=== PATIENT | male | born 1965 | race Caucasian/White ===

== ENCOUNTER 2016-12-08 15:35 | Emergency (ER) | payer MEDICAID ==
[~2016-12-08] VITALS: Ht 193 cm; Wt 107.5 kg
--- NOTE | 2016-12-08 16:00 | NUR ---
PT BIB SELF C/O LEANDRA NECK MASSES "SWOLLEN LYMPH NODES" X 6+MONTHS. DENIES PAIN. NO ORAL OR PHARYNGEAL SWELLING NOTED. NO DIFFICULTY SWALLOWING OR SPEAKING. SWELLING NONTENDER TO PALP. RESP EVEN UNLABORED. IN ER BED 09.
[2016-12-08] MEDS ORDERED: IV NS 0.9% 1,000 ML ONE (16:27)
[2016-12-08] MEDS ORDERED: IV SET PRIMARY 1 EA INFUS.SET MC ONE (16:27)
[2016-12-08] MEDS: IV NS 0.9% 1,000 ML BAG IV ONE (16:34)
[2016-12-08 16:40] LABS: BASOPHILS # (AUTO) 0.1 /CMM (0.0-0.2); BASOPHILS % (AUTO) 0.9 % (0.0-2.0); EOSINOPHILS # (AUTO) 0.2 /CMM (0.0-0.7); EOSINOPHILS % (AUTO) 1.7 % (0.0-6.0); HEMATOCRIT 45 % (39-51); HEMOGLOBIN 14.9 g/dL (13.5-17.5); LYMPHOCYTES # (AUTO) 4.8 /CMM (0.8-4.8); LYMPHOCYTES % (AUTO) 38.8 % (20.0-44.0); MEAN CORPUSCULAR HEMOGLOBIN 29 PG (26.0-33.0); MEAN CORPUSCULAR HGB CONC 33 g/dl (31.0-36.0); MEAN CORPUSCULAR VOLUME 89 fL (80-96); MONOCYTES # (AUTO) 1.1 /CMM (0.1-1.30); MONOCYTES % (AUTO) 8.6 % (2.0-12.0); NEUTROPHILS # (AUTO) 6.3 /CMM (1.8-8.9); PLATELET COUNT (AUTO) 258 /CMM (150-450); RDW COEFFICIENT OF VARIATION 14.6 (11.5-15.0); RED BLOOD CELL COUNT(AUTO) 5.11 MIL/uL (4.5-6.0); WHITE BLOOD COUNT (AUTO) 12.5 K/uL (4.3-11.0)
[2016-12-08 16:50] LABS: CALCIUM, SERUM 9.2 mg/dL (8.5-10.1); CREATININE 1.4 mg/dL (0.6-1.3)
[2016-12-08 16:56] LABS: BILIRUBIN,DIRECT 0.1 mg/dL (0.0-0.2); BILIRUBIN,TOTAL 0.4 mg/dL (0.2-1.0); TOTAL PROTEIN, SERUM 7.7 g/dL (6.4-8.2)
[2016-12-08] MEDS ORDERED: IOHEXOL-300 100 ML VIAL IV ONE (17:01)
[2016-12-08] MEDS ORDERED: CT SWABBABLE VALVE TRANS SET 1 EA INFUS.SET MC ONE (17:01)
[2016-12-08] MEDS ORDERED: IV NS 0.9% 250 ML IV ONE (17:01)
--- NOTE | 2016-12-08 17:40 | NUR ---
PT RESTING QUIETLY IN BED, NAD NOTED.
--- NOTE | 2016-12-08 18:47 | NUR ---
Patient discharged to home in stable condition. Written and verbal after care instructions given. Patient verbalizes understanding of instruction. IV removed. Catheter intact and site benign. Pressure and 4x4 applied to site. No bleeding noted. AMBUALTORY WITH STEADY GAIT.
[2016-12-08 18:48] VITALS: BP 151/80
== END 2016-12-08 18:48 | disposition home or self-care (01) ==
LOC: ER 15:39
DX: R59.1 Generalized enlarged lymph nodes (principal)
CPT/HCPCS: 36415; 70491; 80048; 80076; 85025; 96360; 99285; A4606; J7030; J7050; Q9967; Z7610

== ENCOUNTER 2019-06-06 01:50 | Inpatient (IN) | payer OTHER ==
[~2019-06-06] VITALS: Ht 193 cm; Wt 103.9 kg
[2019-06-06 02:00] VITALS: BP 140/88
--- NOTE | 2019-06-06 02:00 | NUR ---
MS RN NOTE PT ARRIVED ON FLOOR VIA GURNEY ACCOMPANIED BY AMBULANCE PERSONNEL. RECEIVED PT IN STABLE CONDITION A/O X4. NO SIGNS OF SOB OR DISTRESS, NO C/O PAIN OR N/V. PT IS AMBULATORY WITH STEADY GAIT. IV IN L HAND #20 PATENT AND INTACT S/L. ALL CURRENT NEEDS ATTENDED TO. BED LOW, LOCKED, UPPER RAILS UP, AND CALL LIGHT WITHIN REACH. WILL CONT. TO MONITOR. ALL BELONGINGS ACCOUNTED AND SIGNED FOR, AND BODY ASSESSED PT DECLINES PHOTOS TO BE TAKEN. WILL CONT. TO MONITOR.
[2019-06-06] MEDS ORDERED: ONDANSETRON HCL/PF 4 MG/2 ML VIAL IVP PRN (02:30)
[2019-06-06] MEDS ORDERED: Z GUARD REMEDY 2 OZ OINT TP PRN (02:30)
[2019-06-06] MEDS ORDERED: ACETAMINOPHEN 325 MG TABLET PO PRN (02:30)
[2019-06-06] MEDS ORDERED: ZOLPIDEM TARTRATE 5 MG TABLET PO PRN (02:30)
[2019-06-06] MEDS: HYDROCODONE/APAP 10/325MG 1 EA TABLET PO PRN ×2 (05:22→10:01)
--- NOTE | 2019-06-06 05:26 | NUR ---
MS RN NOTE PRN NORCO 10-325 MG PO GIVEN FOR LLE PAIN 04/06. WILL CONT. TO MONITOR.
--- NOTE | 2019-06-06 06:18 | NUR ---
MS RN NOTE PT REMAINS IN STABLE CONDITION A/O X4, RESTING IN BED. NO SIGNS OF SOB OR DISTRESS, NO C/O PAIN OR N/V. IV IN L HAND #20 PATENT AND INTACT S/L. ALL CURRENT NEEDS ATTENDED TO. BED LOW, LOCKED, UPPER RAILS UP, AND CALL LIGHT WITHIN REACH. WILL CONT. TO MONITOR AND ENDORSE TO NEXT SHIFT FOR LA NENA.
[2019-06-06 06:33] LABS: BASOPHILS % (AUTO) 0.3 % (0.0-2.0); EOSINOPHILS % (AUTO) 2.8 % (0.0-6.0); HEMATOCRIT 36 % (39-51); HEMOGLOBIN 12.2 g/dL (13.5-17.5); LYMPHOCYTES # (AUTO) 3.8 /CMM (0.8-4.8); LYMPHOCYTES % (AUTO) 49.5 % (20.0-44.0); MEAN CORPUSCULAR HGB CONC 34 g/dl (31.0-36.0); MEAN CORPUSCULAR VOLUME 92 fL (80-96); MONOCYTES # (AUTO) 0.6 /CMM (0.1-1.30); MONOCYTES % (AUTO) 8.2 % (2.0-12.0); NEUTROPHILS % (AUTO) 39.2 % (43.0-81.0); PLATELET COUNT (AUTO) 94 /CMM (150-450); RED BLOOD CELL COUNT(AUTO) 3.93 MIL/uL (4.5-6.0); WHITE BLOOD COUNT (AUTO) 7.8 K/uL (4.3-11.0)
[2019-06-06 06:45] LABS: ALBUMIN 3.3 g/dL (3.4-5.0); BILIRUBIN,TOTAL 0.6 mg/dL (0.2-1.0); CALCIUM, SERUM 8.7 mg/dL (8.5-10.1); CREATININE 0.9 mg/dL (0.6-1.3); PHOSPHORUS 3.8 mg/dL (2.5-4.9); POTASSIUM 3.7 mmol/L (3.5-5.1); TOTAL PROTEIN, SERUM 6.2 g/dL (6.4-8.2)
[2019-06-06 07:19] LABS: URIC ACID 5.8 mg/dL (2.6-7.2)
--- NOTE | 2019-06-06 07:20 | NUR ---
MS RN NOTES RECEIVED PATIENT ALERT AND AWAKE, ORIENTED X4. DENIES ANY C/O PAIN NOR DISCOMFORT AT THIS TIME. HOB ELEVATED. LEFT HAND # 20 INTACT AND PATENT. BED IN LOWEST POSITION, LOCKED. BED ALARM ON. CALL LIGHT WITHIN REACH. OFFERED PATIENT FLU VACCINE BUT DECLINES AT THIS TIME. ABLE TO VERBALIZE NEEDS.
[2019-06-06 08:00] VITALS: BP 110/74
[2019-06-06] MEDS ORDERED: DIPH25CA51 PO (08:52)
[2019-06-06] MEDS ORDERED: IBUP-1955 PO (08:52)
[2019-06-06] MEDS: RIVAROXABAN 15 MG TABLET PO SCH ×2 (08:59→16:52)
[2019-06-06] MEDS ORDERED: FAMOTIDINE (20 MG) 20 MG TABLET PO SCH (09:00)
[2019-06-06] MEDS ORDERED: LACTOBACILLUS RHAMNOSUS GG 1 EACH CAP.SPRINK PO SCH (09:00)
--- NOTE | 2019-06-06 11:22 | NUR ---
Social service consult requested by Dr. Cobos for homelessness and pt. needing medical equipment assistance. Pt. is a 53 year old male with past medical history of lymphoma and who was seen in ED at [facility] for left leg pain and swelling for 3 days without any chest pain or shortness of breath or no recent trauma. Pt, was transferred to [facility] for insurance reasons as a direct admit. SW and manager of case Ewelina met with the pt. bedside. Pt. is alert and oriented x 4. Pt. had a t-shirt covering his head. Pt's thought process was tangential. Pt. states he has been living at [facility] located at [address] [place] [address]. Pt's ice cream vault worker is Brinda . Pt. has a psychiatric diagnosis of Schizophrenia. Pt. states, he is ashamed of having the diagnosis. SW offered pt. emotional support. Pt. takes Gabapentin. 500mg on and off. Pt. takes Benadryl at night to help him sleep. Pt. sees a psychiatrist at [facility]. Pt. denies any suicidal and homicidal ideations at this time. Pt. states it is common for him to have visual and auditory hallucinations. Pt. states he consistently hears voices but cannot elaborate what they are saying. Pt. states his visual hallucinations include "glass images." Pt. receives food stamps and GR in the amount of $224/ month. Pt. denies alcohol, drug and cigarette use. Pt. will return back to [facility] when discharged. Pt. will require TAP card to get to his location of choice. Pt. will be provided with a cane from case management. Homeless patient Waiver form to be signed by the pt. upon discharge. No other social service needs are requested at this time. SW is available, if needed.
[2019-06-06 16:00] VITALS: BP 113/67
--- NOTE | 2019-06-06 18:20 | NUR ---
MS RN CLOSING NOTES ALERT AND ORIENTED X4. NO SOB. DENIES ANY C/O PAIN NOR DISCOMFORT. DISCHARGE PACKET AND DISCHARGE INSTRUCTIONS GIVEN TO PATIENT WITH EDUCATION PROVIDED. PER PATIENT, HE HAS AN APPOINTMENT SCHEDULED WITH HIS PRIMARY MD AND ONCOLOGIST. IV ACCESS REMOVED WITH CATHETER TIP INTACT WITH GAUZE DRESSING IN PLACE. PRESCRIPTION GIVEN TO PATIENT. AMBULATORY WITH STEADY GAIT WITH THE USE OF CANE. ALL BELONGINGS ACCOUNTED FOR. LEFT IN STABLE CONDITION VIA PRIVATE CAR. NO S/S OF ACUTE DISTRESS.
== END 2019-06-06 18:05 | disposition home or self-care (01) | DRG 197 ==
LOC: MED 01:50
PROVIDERS: ADMIT Student in an Organized Health Care Education/Training Program; ATTEND Student in an Organized Health Care Education/Training Program
DX: I82.412 Acute embolism and thrombosis of left femoral vein (principal); C85.90 Non-Hodgkin lymphoma, unspecified, unspecified site; D68.59 Other primary thrombophilia; I82.432 Acute embolism and thrombosis of left popliteal vein; E44.1 Mild protein-calorie malnutrition; F20.9 Schizophrenia, unspecified; Z88.0 Allergy status to penicillin; D64.9 Anemia, unspecified; Z59.0 Homelessness; E88.09 Other disorders of plasma-protein metabolism, not elsewhere classified; Z68.27 Body mass index [BMI] 27.0-27.9, adult
CPT/HCPCS: 36415; 80053-TC; 83615-TC; 83735-TC; 84100-TC; 84550-TC; 85025-TC; 87081-TC; 93307-TC; 97116-TC; 97530-TC; G0378

== ENCOUNTER 2019-06-14 12:13 | Emergency (ER) | payer OTHER ==
[~2019-06-14] VITALS: Ht 193 cm; Wt 109.8 kg
[~2019-06-14 12:13] MED LIST: DIPH25CA51 PO; IBUP-1955 PO
[2019-06-14 12:17] VITALS: BP 113/88
[2019-06-14 12:52] LABS: BASOPHILS % (AUTO) 0.5 % (0.0-2.0); EOSINOPHILS % (AUTO) 3.2 % (0.0-6.0); HEMATOCRIT 35 % (39-51); HEMOGLOBIN 12.1 g/dL (13.5-17.5); LYMPHOCYTES # (AUTO) 2.2 /CMM (0.8-4.8); LYMPHOCYTES % (AUTO) 29.9 % (20.0-44.0); MEAN CORPUSCULAR HGB CONC 34 g/dl (31.0-36.0); MEAN CORPUSCULAR VOLUME 92 fL (80-96); MONOCYTES # (AUTO) 0.5 /CMM (0.1-1.30); MONOCYTES % (AUTO) 7.1 % (2.0-12.0); NEUTROPHILS # (AUTO) 4.3 /CMM (1.8-8.9); NEUTROPHILS % (AUTO) 59.3 % (43.0-81.0); PLATELET COUNT (AUTO) 187 /CMM (150-450); WHITE BLOOD COUNT (AUTO) 7.3 K/uL (4.3-11.0)
[2019-06-14 13:00] LABS: CALCIUM, SERUM 8.7 mg/dL (8.5-10.1); POTASSIUM 4.1 mmol/L (3.5-5.1)
[2019-06-14 13:02] LABS: BILIRUBIN,URINE SMALL (NEGATIVE); BLOOD, URINE Large Ery/uL (NEGATIVE); COLOR,URINE Brown (YELLOW); KETONES,URINE Trace (NEGATIVE); LEUKOCYTE ESTERASE ,URINE Negative (NEGATIVE); NITRITE, URINE Negative (NEGATIVE); PH,URINE 5.5 (5.0-8.0); PROTEIN,URINE >=300 mg/dl (NEGATIVE); UGLUCOSE Negative (NEGATIVE); UROBILINOGEN,URINE 0.2 EU/dL (0.2)
[2019-06-14 13:03] LABS: APPEARANCE,URINE Cloudy (CLEAR)
[2019-06-14 13:05] LABS: BACTERIA,URINE Few /HPF (None Seen); RBC,URINE TOO NUMEROUS TO COUN /HPF (0-2); SQUAMOUS EPITHELIAL CELL,UR Few /HPF (None Seen); URINE AMORPHOUS URATE Moderate /HPF (None Seen); WBC,URINE 0-3 /HPF (0-3)
== END 2019-06-14 13:32 | disposition home or self-care (01) ==
LOC: ER 12:21
DX: R31.9 Hematuria, unspecified (principal); Z88.0 Allergy status to penicillin; Z60.2 Problems related to living alone; Z79.899 Other long term (current) drug therapy; Z85.72 Personal history of non-Hodgkin lymphomas
CPT/HCPCS: 36415; 80048-TC; 81000-TC; 85025-TC; 85730-TC

== ENCOUNTER 2019-10-19 10:21 | Inpatient (IN) | payer OTHER ==
[~2019-10-19] VITALS: Ht 182.9 cm; Wt 70.8 kg
[2019-10-19] MEDS ORDERED: IPRATROPIUM NEB FS 0.5 MG/2.5 ML AMPUL.NEB NEB ONE (10:30)
[2019-10-19] MEDS ORDERED: ALBUTEROL FS 2.5 MG/3 ML VIAL.NEB NEB ONE (10:30)
[2019-10-19] MEDS ORDERED: IV NS 0.9% 1,000 ML BAG IV ONE ×2 (10:30→13:30)
[2019-10-19] MEDS ORDERED: ALBUTEROL FS 2.5 MG/3 ML VIAL.NEB ONE (10:33)
[2019-10-19] MEDS ORDERED: IPRATROPIUM NEB FS 0.5 MG/2.5 ML AMPUL.NEB ONE (10:33)
[2019-10-19 10:58] LABS: BASOPHILS % (AUTO) 0.2 % (0.0-2.0); HEMATOCRIT 41 % (39-51); HEMOGLOBIN 13.9 g/dL (13.5-17.5); LYMPHOCYTES # (AUTO) 0.4 /CMM (0.8-4.8); LYMPHOCYTES % (AUTO) 19.6 % (20.0-44.0); MEAN CORPUSCULAR HGB CONC 34 g/dl (31.0-36.0); MEAN CORPUSCULAR VOLUME 88 fL (80-96); MONOCYTES # (AUTO) 1.2 /CMM (0.1-1.30); MONOCYTES % (AUTO) 68.6 % (2.0-12.0); NEUTROPHILS # (AUTO) 0.1 /CMM (1.8-8.9); NEUTROPHILS % (AUTO) 7.6 % (43.0-81.0); PLATELET COUNT (AUTO) 207 /CMM (150-450)
[2019-10-19 11:00] LABS: WHITE BLOOD COUNT (AUTO) 1.8 K/uL (4.3-11.0)
--- NOTE | 2019-10-19 11:00 | NUR ---
patient came in to ER BIBRA, c/o chills, cough and congestion x 1 month. On room air, breathing evenly and unlabored. connected to the monitor and pulse ox. kept comfortable, will continue to monitor accordingly.
[2019-10-19 11:05] LABS: CALCIUM, SERUM 9.1 mg/dL (8.5-10.1); CARBON DIOXIDE 23 mmol/L (21-32); CHLORIDE 101 mmol/L (98-107); CREATININE 0.9 mg/dL (0.6-1.3); GLUCOSE 122 mg/dL (74-106); POTASSIUM 3.5 mmol/L (3.5-5.1); SODIUM SERUM 137 mmol/L (136-145); UREA NITROGEN, BLOOD 16 mg/dL (7-18)
[2019-10-19 11:18] LABS: B-TYPE NATRIURETIC PEPTIDE 37 PG/ML (0-125)
--- NOTE | 2019-10-19 11:47 | NUR ---
GAVE MOVESHEET TO ADMITTING
[2019-10-19] MEDS ORDERED: RIVA15TA PO (12:29)
[2019-10-19 12:35] LABS: BAND % (MANUAL) 1 % (0.0-5.0); EOSINOPHILS % (MANUAL) 3 % (0-4); LYMPHOCYTES % (MANUAL) 17 % (16-48); MONOCYTES % (MANUAL) 71 % (0-11.0); NEUTROPHILS % (MANUAL) 8 (42-76)
[2019-10-19] MEDS ORDERED: LEVOFLOXACIN 750 MG /D5W 150ML PIGGYBACK IV ONE (13:30)
[2019-10-19] MEDS ORDERED: VANCOMYCIN 1 GM in IV D5W 250 ML IV ONE (13:30)
[2019-10-19] MEDS ORDERED: LEVOFLOXACIN 750 MG /D5W 150ML 150 ML IV ONE (13:36)
--- NOTE | 2019-10-19 14:26 | NUR ---
report given to Fletcher ZAVALETA for sal.
[2019-10-19 15:00] VITALS: BP 127/73
--- NOTE | 2019-10-19 15:00 | NUR ---
MS GARMENT MANUFACTURING SUPERVISOR NOTE PATIENT ARRIVED FROM ER BY GINA. PATIENT AMBULATORY TO BED. PATIENT BREATHING IS EVEN AND UNLABORED. PATIENT BREATHING ON ROOM AIR SATURATING >95% SP02. PATIENT IN NO ACUTE DISTRESS. NO SOB NOTED. PATIENT VITAL SIGNS WNL. PATIENT BED IS LOCKED AND IN LOWEST POSITION. CALL LIGHT WITHIN REACH. WILL CONTINUE TO MONITOR. CHNATELL CERVANTES MADE AWARE OF PATIENTS ARRIVAL.
--- NOTE | 2019-10-19 15:01 | NUR ---
wheeled patient via gurney accompanied by EMT, in no distress, Vancomycin IV infusing while transfer
[2019-10-19 15:10] VITALS: BP 127/73
[2019-10-19] MEDS ORDERED: Z GUARD REMEDY 2 OZ OINT TP PRN (15:30)
[2019-10-19] MEDS ORDERED: FEE PK DOSING 1 MIN EA MC ONE (15:34)
[2019-10-19] MEDS: IV NS 0.9% 1,000 ML IV PRN (15:52)
[2019-10-19] MEDS: CEFEPIME 2 GM in IV D5W 100 ML IV SCH ×2 (16:56→23:20)
[2019-10-19] MEDS: VANCOMYCIN 1 GM in IV D5W 250 ML IV SCH (17:58)
--- NOTE | 2019-10-19 18:15 | NUR ---
MS RN NOTE REFUSED TO HAVE SKIN ASSESSMENT DONE IN PERINEAL AND BUTT AREAS. EDUCATED RISKS VS BENEFITS. PATIENT CONTINUED TO REFUSE.
--- NOTE | 2019-10-19 19:15 | NUR ---
MS RN OPENING NOTES Received patient awake, ambulatory independently. Patient denies any discomfort at this time. On fall and aspiration precautions. Call light within easy reach. Will continue to monitor accordingly.
--- NOTE | 2019-10-19 19:42 | NUR ---
MS RN CLOSING NOTE PATIENT IN BED RESTING COMFORTABLY. PATIENT IN NO ACUTE DISTRESS. NO SOB NOTED. PATIENT BREATHING IS EVEN AND UNLABORED. PATIENT NEEDS AND CONCERNS ADDRESSED. IV PATENT AND INTACT. SAFETY PRECAUTIONS IN PLACE. PATIENT BED IS LOCKED AND IN LOWEST POSITION. CALL LIGHT WITHIN REACH. WILL ENDORSE CARE TO PM SHIFT FOR LA NENA.
[2019-10-19 20:00] VITALS: BP 114/72
[2019-10-20] MEDS: VANCOMYCIN 1 GM in IV D5W 250 ML IV SCH ×3 (00:31→17:06)
[2019-10-20] MEDS: ACETAMINOPHEN 325 MG TABLET PO PRN ×2 (03:02→08:24)
--- NOTE | 2019-10-20 06:47 | NUR ---
MS RN CLOSING NOTES Patient on bed, easily awaken. No new complaints made. All nursing needs attended. Due meds given as ordered, no ASE noted. Kept on bed clean, dry and comfortable. On fall and aspiration precautions. Call light within easy reach. Endorsed.
[2019-10-20 08:00] VITALS: BP 126/65
--- NOTE | 2019-10-20 08:00 | NUR ---
MS RN NOTES PATIENT IS LAYING IN BED. PT IS ALERT AND ORIENTED, ABLE TO COMMUNICATE NEEDS. VITAL SIGNS APPEAR TO BE NORMAL. ADMINISTERED MEDICATIONS. ON ROOM AIR, NO SOB NOTED. CALL LIGHT WITHIN REACH.
[2019-10-20] MEDS: ONDANSETRON HCL/PF 4 MG/2 ML VIAL IVP PRN ×2 (08:07→19:01)
[2019-10-20] MEDS: CEFEPIME 2 GM in IV D5W 100 ML IV SCH ×2 (08:07→16:34)
--- NOTE | 2019-10-20 08:07 | NUR ---
MS RN NOTES ZOFRAN ADMINISTERED DUE TO PT'S COMPLAINTS OF NAUSEA.
[2019-10-20] MEDS: IV NS 0.9% 1,000 ML IV PRN (08:19)
[2019-10-20 08:24] LABS: BASOPHILS % (AUTO) 0.6 % (0.0-2.0); EOSINOPHILS % (AUTO) 3.5 % (0.0-6.0); HEMATOCRIT 38 % (39-51); HEMOGLOBIN 12.6 g/dL (13.5-17.5); LYMPHOCYTES # (AUTO) 0.4 /CMM (0.8-4.8); LYMPHOCYTES % (AUTO) 18.7 % (20.0-44.0); MEAN CORPUSCULAR HGB CONC 34 g/dl (31.0-36.0); MEAN CORPUSCULAR VOLUME 86 fL (80-96); MONOCYTES # (AUTO) 1.6 /CMM (0.1-1.30); MONOCYTES % (AUTO) 66.9 % (2.0-12.0); NEUTROPHILS # (AUTO) 0.2 /CMM (1.8-8.9); NEUTROPHILS % (AUTO) 10.3 % (43.0-81.0); PLATELET COUNT (AUTO) 216 /CMM (150-450); RED BLOOD CELL COUNT(AUTO) 4.37 MIL/uL (4.5-6.0); WHITE BLOOD COUNT (AUTO) 2.3 K/uL (4.3-11.0)
--- NOTE | 2019-10-20 08:24 | NUR ---
MS RN NOTES TYLENOL ADMINISTERED TO PT BECAUSE HE IS EXPERIENCING PAIN.
[2019-10-20 08:49] LABS: THYROID STIMULATING HORMONE 1.997 uIU/mL (0.358-3.74)
[2019-10-20 08:56] LABS: ALBUMIN 2.6 g/dL (3.4-5.0); BILIRUBIN,TOTAL 0.4 mg/dL (0.2-1.0); CALCIUM, SERUM 8.3 mg/dL (8.5-10.1); CREATININE 0.8 mg/dL (0.6-1.3); MAGNESIUM 1.7 mg/dL (1.8-2.4); PHOSPHORUS 2.6 mg/dL (2.5-4.9); POTASSIUM 3.4 mmol/L (3.5-5.1); TOTAL PROTEIN, SERUM 6.3 g/dL (6.4-8.2)
[2019-10-20 09:51] LABS: BAND % (MANUAL) 2 % (0.0-5.0); EOSINOPHILS % (MANUAL) 1 % (0-4); LYMPHOCYTES % (MANUAL) 28 % (16-48); MONOCYTES % (MANUAL) 51 % (0-11.0); NEUTROPHILS % (MANUAL) 18 (42-76)
[2019-10-20] MEDS ORDERED: POTASSIUM CHLORIDE 20 MEQ TAB.PRT.SR PO SCH (10:00)
--- NOTE | 2019-10-20 10:16 | NUR ---
rn notes administered Robitussin 300/15 ml po prn for cough. infusing valinomycin 250 ml/hr on right ac area intact. medication were administered for nausea, and headache effective.
[2019-10-20] MEDS ORDERED: GUAIFENESIN 300 MG/15 ML UDC PO PRN (10:30)
[2019-10-20] MEDS: Magnesium 1GM/D5W 100ML PREMIX 100 ML IV SCH ×2 (12:23→13:30)
[2019-10-20] MEDS: RIVAROXABAN 15 MG TABLET PO SCH (12:29)
[2019-10-20] MEDS: GUAIFENESIN/CODEINE 10 ML UDC PO PRN ×2 (15:16→20:32)
--- NOTE | 2019-10-20 15:44 | NUR ---
MS RN NOTES RECEIVED PHONE CALL FROM [facility] STATING PT IS POSITIVE FOR MRSA OF THE RIGHT NARE. MD NOTIFIED. ORDER TAKEN AND CARRIED OUT.
[2019-10-20 16:00] VITALS: BP_SYST 115; BP_SYST 155; BP_DIAS 66
--- NOTE | 2019-10-20 18:00 | NUR ---
MS RN CLOSING NOTES PATIENT IS LAYING IN BED TRYING TO SLEEP. BED IS IN LOWEST POSITION, LOCKED WITH BOTH SIDE RAILS UP. HAS DINNER ON SIDE TABLE AND CALL LIGHT IS WITHIN REACH. IV IS PATENT AND FLUSHABLE. PATIENT IS ON ROOM AIR WITH NO SHORTNESS OF BREATH NOTED. GAVE REPORT TO NIGHT NURSE.
[2019-10-20] MEDS ORDERED: TBO-FILGRASTIM 480 MCG/0.8 ML ML SQ SCH (18:30)
--- NOTE | 2019-10-20 19:01 | NUR ---
MS RN NOTES ADMINISTERED ZOFRAN 4MG [id number] PER PATIENT'S REQUEST. PATIENT COMPLAINED OF NAUSEA. WILL CONTINUE TO MONITOR.
--- NOTE | 2019-10-20 19:35 | NUR ---
MS RN OPENING NOTES RECEIVED PATIENT FROM MORNING SHIFT, ALERT AND ORIENTED X 3. VERBALLY RESPONSIVE AND ABLE TO FOLLOW DIRECTIONS. BREATHING REGULAR AND UNLABORED ON ROOM AIR. RIGHT AC G18 IV LINE INTACT AND PATENT, INFUSING WELL WITH NO BLEEDING OR S/S OF INFILTRATION NOTED. REFUSED BODY ASSESSMENT FOR NOW, RISK AND BENEFITS EXPLAINED. NO COMPLAINTS OF PAIN/DISCOMFORT OR NAUSEA/VOMITING REPORTED OF THE TIME. BED LOW AND LOCKED ON SEMI FOWLERS POSITION. CALL LIGHT IN REACH. WILL CONTINUE TO MONITOR.
[2019-10-20 20:00] VITALS: BP 104/45
[2019-10-20] MEDS: MUPIROCIN OINT 2% 22 GM TUBE SCH (20:41)
--- NOTE | 2019-10-20 20:45 | NUR ---
MS RN NOTES COMPLAINED OF COUGH, ROBITUSSIN 10 SYRUP GIVEN BY MOUTH. HOB KEPT ELEVATED. WILL CONTINUE TO MONITOR.
[2019-10-20 22:00] VITALS: BP 104/45
[2019-10-21] MEDS: CEFEPIME 2 GM in IV D5W 100 ML IV SCH ×4 (00:07→23:06)
[2019-10-21] MEDS: VANCOMYCIN 1 GM in IV D5W 250 ML IV SCH ×3 (00:55→17:24)
[2019-10-21] MEDS: GUAIFENESIN/CODEINE 10 ML UDC PO PRN ×3 (01:56→14:06)
--- NOTE | 2019-10-21 02:00 | NUR ---
MS RN NOTES COMPLAINED OF COUGH, ROBITUSSIN 10 SYRUP GIVEN BY MOUTH. HOB KEPT ELEVATED. WILL CONTINUE TO MONITOR.
[2019-10-21] MEDS: IV NS 0.9% 1,000 ML IV PRN (06:01)
--- NOTE | 2019-10-21 06:35 | NUR ---
MS RN CLOSING NOTES PATIENT IN BED ALERT AND ORIENTED X 3. VERBALLY RESPONSIVE AND ABLE TO FOLLOW DIRECTIONS. BREATHING REGULAR AND UNLABORED ON ROOM AIR. RIGHT AC G18 IV LINE PATENT AND INFUSING WELL. NO COMPLAINTS OF PAIN/DISCOMFORT OR NAUSEA/VOMITING REPORTED OF THE TIME. MAINTAINED ON CONTACT ISOLATION FOR MRSA NARES, PROPER HAND WASHING AND ISOLATION PRECAUTIONS OBSERVED. BED LOW AND LOCKED ON SEMI FOWLERS POSITION. CALL LIGHT IN REACH. WILL ENDORSE TO MORNING SHIFT FOR LA NENA.
[2019-10-21 07:48] LABS: CALCIUM, SERUM 8.5 mg/dL (8.5-10.1); CREATININE 0.9 mg/dL (0.6-1.3); MAGNESIUM 1.8 mg/dL (1.8-2.4); POTASSIUM 3.4 mmol/L (3.5-5.1)
[2019-10-21 08:00] VITALS: BP 103/67
--- NOTE | 2019-10-21 08:00 | NUR ---
RN NOTES SEEN PATIENT IN THE BED RESTING, WAS COMPLAINING OF HEADACHE BECAUSE OF COUGH. ADMINISTERED SCHEDULED MEDICATION, V/S WNL. PATIENT AMBULATORY SELF CARE. MRSA OF NARES. CONTINUED MONITORING.
[2019-10-21] MEDS: FERROUS SULFATE (325 MG) 325 MG/TAB TABLET PO SCH ×2 (08:25→17:23)
[2019-10-21] MEDS: MUPIROCIN OINT 2% 22 GM TUBE SCH ×2 (08:32→21:28)
[2019-10-21] MEDS: ACETAMINOPHEN 325 MG TABLET PO PRN (08:43)
--- NOTE | 2019-10-21 08:43 | NUR ---
rn notes administered Tylenol 650 mg po prn for headache, and Robitussin 10 mg po prn for cough per patient request,
--- NOTE | 2019-10-21 10:00 | NUR ---
RN NOTES Seen patient via hospitalist LISSETT Marie continued hospitalization, chest x_ray wo contrast, patient had a t-shirt covering his head, mood is euthymic., continued monitoring.
[2019-10-21] MEDS ORDERED: POTASSIUM CHLORIDE 20 MEQ TAB.PRT.SR PO SCH (10:30)
--- NOTE | 2019-10-21 11:45 | NUR ---
Social service consult requested by MD for homelessness. Per chart review and MD notes, pt is a 53-year-old male with history of lymphoma who comes in with cough congestion fever and chills for the past month. He said he was seen in another hospital started on Levaquin for pneumonia. He states he continues to worsening condition and feels severe fevers and chills. JEWEL HOLE DRILLER met with the pt. bedside. Pt. is alert and oriented x 4. Pt. had a t-shirt covering his head. Pt's mood is euthymic. Pt. states he has been living at [facility] located at [address] [place] [address] since Apr 2019. Pt's bliss press operator is Brinda . Pt. has a psychiatric diagnosis of Schizophrenia. Pt. takes Gabapentin. 500mg on and off. Pt. takes Benadryl at night to help him sleep. Pt. sees a psychiatrist at [facility] in [facility]. Pt. denies any suicidal and homicidal ideations at this time. Pt. denies visual/auditory hallucinations at this time. Pt. receives food stamps and GR in the amount of $224/ month. Pt. denies alcohol, drug and cigarette use. Pt. will return back to [facility] when discharged. Pt. will require TAP card to get to his location of choice. JEWEL HOLE DRILLER provided pt with active listening and supportive counseling. JEWEL HOLE DRILLER updated cyanide case hardener Ewelina with pt's discharge plan. Homeless patient Waiver form to be signed by the pt. upon discharge. No other social service needs are requested at this time. SW is available, if needed.
[2019-10-21] MEDS: RIVAROXABAN 15 MG TABLET PO SCH (14:06)
[2019-10-21] MEDS: ONDANSETRON HCL/PF 4 MG/2 ML VIAL IVP PRN (14:06)
--- NOTE | 2019-10-21 14:06 | NUR ---
RN NOTES ADMINISTERED ZOFRAN 4 MG/ML IV PUSH, AND ROBITUSSIN 10 MG PO PRN FOR PER PATIENT REQUEST, V/S WNL CONTINUED MONITORING.
[2019-10-21 15:13] LABS: BASOPHILS # (AUTO) 0.1 /CMM (0.0-0.2); EOSINOPHILS % (AUTO) 2.2 % (0.0-6.0); HEMATOCRIT 37 % (39-51); HEMOGLOBIN 12.4 g/dL (13.5-17.5); LYMPHOCYTES # (AUTO) 0.4 /CMM (0.8-4.8); LYMPHOCYTES % (AUTO) 6.8 % (20.0-44.0); MEAN CORPUSCULAR HGB CONC 34 g/dl (31.0-36.0); MEAN CORPUSCULAR VOLUME 87 fL (80-96); MONOCYTES # (AUTO) 1.9 /CMM (0.1-1.30); MONOCYTES % (AUTO) 30.8 % (2.0-12.0); NEUTROPHILS # (AUTO) 3.6 /CMM (1.8-8.9); NEUTROPHILS % (AUTO) 59.2 % (43.0-81.0); PLATELET COUNT (AUTO) 190 /CMM (150-450); RED BLOOD CELL COUNT(AUTO) 4.27 MIL/uL (4.5-6.0); WHITE BLOOD COUNT (AUTO) 6.1 K/uL (4.3-11.0)
[2019-10-21 16:00] VITALS: BP 127/72
--- NOTE | 2019-10-21 19:25 | NUR ---
MS RN OPENING NOTES RECEIVED PATIENT FROM MORNING SHIFT, ALERT AND ORIENTED X 3. VERBALLY RESPONSIVE AND ABLE TO FOLLOW DIRECTIONS. BREATHING REGULAR AND UNLABORED ON ROOM AIR. LEFT FOREARM G20 IV LINE INTACT AND PATENT, INFUSING WELL WITH NO BLEEDING OR S/S OF INFILTRATION NOTED. NO COMPLAINTS OF PAIN/DISCOMFORT OR NAUSEA/VOMITING REPORTED OF THE TIME. BED LOW AND LOCKED ON SEMI FOWLERS POSITION. CALL LIGHT IN REACH. WILL CONTINUE TO MONITOR.
[2019-10-21 20:44] VITALS: BP 129/70
[2019-10-21 21:00] VITALS: BP 129/70
[2019-10-22] MEDS: VANCOMYCIN 1 GM in IV D5W 250 ML IV SCH ×2 (00:27→09:21)
[2019-10-22] MEDS: IV NS 0.9% 1,000 ML IV PRN (02:21)
[2019-10-22] MEDS: GUAIFENESIN/CODEINE 10 ML UDC PO PRN ×2 (02:21→06:37)
--- NOTE | 2019-10-22 02:30 | NUR ---
MS RN NOTES COMPLAINED OF COUGH, ROBITUSSIN 10 SYRUP GIVEN BY MOUTH. HOB KEPT ELEVATED. WILL CONTINUE TO MONITOR.
--- NOTE | 2019-10-22 06:15 | NUR ---
MS RN CLOSING NOTES PATIENT IN BED ALERT AND ORIENTED X 3. VERBALLY RESPONSIVE AND ABLE TO FOLLOW DIRECTIONS. BREATHING REGULAR AND UNLABORED ON ROOM AIR. LEFT FOREARM G20 IV LINE PATENT AND INFUSING WELL. NO COMPLAINTS OF PAIN/DISCOMFORT OR NAUSEA/VOMITING REPORTED OF THE TIME. MAINTAINED ON CONTACT ISOLATION FOR MRSA NARES, PROPER HAND WASHING AND ISOLATION PRECAUTIONS OBSERVED. BED LOW AND LOCKED ON SEMI FOWLERS POSITION. CALL LIGHT IN REACH. WILL ENDORSE TO MORNING SHIFT FOR LA NENA.
[2019-10-22 07:26] LABS: CALCIUM, SERUM 8.3 mg/dL (8.5-10.1); CREATININE 0.8 mg/dL (0.6-1.3); POTASSIUM 3.4 mmol/L (3.5-5.1)
[2019-10-22 07:33] LABS: BASOPHILS % (AUTO) 0.2 % (0.0-2.0); EOSINOPHILS % (AUTO) 2.6 % (0.0-6.0); HEMATOCRIT 37 % (39-51); HEMOGLOBIN 12.6 g/dL (13.5-17.5); LYMPHOCYTES # (AUTO) 0.5 /CMM (0.8-4.8); LYMPHOCYTES % (AUTO) 6.2 % (20.0-44.0); MEAN CORPUSCULAR HGB CONC 34 g/dl (31.0-36.0); MEAN CORPUSCULAR VOLUME 86 fL (80-96); MONOCYTES # (AUTO) 1.5 /CMM (0.1-1.30); MONOCYTES % (AUTO) 16.9 % (2.0-12.0); NEUTROPHILS # (AUTO) 6.6 /CMM (1.8-8.9); NEUTROPHILS % (AUTO) 74.1 % (43.0-81.0); PLATELET COUNT (AUTO) 203 /CMM (150-450); RED BLOOD CELL COUNT(AUTO) 4.34 MIL/uL (4.5-6.0); WHITE BLOOD COUNT (AUTO) 8.9 K/uL (4.3-11.0)
[2019-10-22 08:00] VITALS: BP 129/70
[2019-10-22] MEDS: CEFEPIME 2 GM in IV D5W 100 ML IV SCH (08:30)
[2019-10-22 08:41] LABS: BAND % (MANUAL) 4 % (0.0-5.0); EOSINOPHILS % (MANUAL) 2 % (0-4); LYMPHOCYTES % (MANUAL) 4 % (16-48); MONOCYTES % (MANUAL) 16 % (0-11.0); NEUTROPHILS % (MANUAL) 74 (42-76)
[2019-10-22] MEDS: FERROUS SULFATE (325 MG) 325 MG/TAB TABLET PO SCH (09:21)
[2019-10-22] MEDS ORDERED: POTASSIUM CHLORIDE 20 MEQ TAB.PRT.SR PO ONE (10:30)
[2019-10-22] MEDS: MUPIROCIN OINT 2% 22 GM TUBE SCH (10:50)
[2019-10-22] MEDS: RIVAROXABAN 15 MG TABLET PO SCH (13:45)
[2019-10-22] MEDS: ACETAMINOPHEN 325 MG TABLET PO PRN (13:56)
[2019-10-22] MEDS ORDERED: FERR325T28 PO (14:11)
[2019-10-22] MEDS ORDERED: MUPI22OI7 MC (14:11)
[2019-10-22] MEDS ORDERED: BENZ-13 PO (14:11)
[2019-10-22] MEDS ORDERED: LEVO500T75 PO (14:11)
[2019-10-22 15:41] VITALS: BP 121/76
--- NOTE | 2019-10-22 16:30 | NUR ---
Patient cleared for d/c to [place] [facility]. Patient awake , alert and oriented x4 , VS are stable and pt on room air. All needs attended prior d/c. Patient refused skin assessment and refused to take d/c pictures. IV line removed and ID wrist band removed. Patient received all d/c instructions , education about s/e of new meds provided. Patient verbalized understanding, patient will f/u with oncologist on 11/04/19. Prescriptions for new meds sent to preferred pharmacy. A tap card provided. Patient signed valuable form, d/c form and homeless waiver form. Patient safely transferred to [facility] via wheelchair accompanied by ZENA Stark
== END 2019-10-22 16:30 | disposition home or self-care (01) | DRG 691 ==
LOC: ER 10:22 → MED 14:11
PROVIDERS: ADMIT Nurse Practitioner Acute Care; ATTEND Registered Nurse
DX: C85.90 Non-Hodgkin lymphoma, unspecified, unspecified site (principal); D68.59 Other primary thrombophilia; D72.819 Decreased white blood cell count, unspecified; Z86.718 Personal history of other venous thrombosis and embolism; F29 Unspecified psychosis not due to a substance or known physiological condition; Z79.01 Long term (current) use of anticoagulants; Z59.0 Homelessness; J98.11 Atelectasis; D64.9 Anemia, unspecified; Z92.21 Personal history of antineoplastic chemotherapy; Z22.322 Carrier or suspected carrier of Methicillin resistant Staphylococcus aureus
CPT/HCPCS: 36415; 71045-TC; 71250-TC; 80048-TC; 80053-TC; 80061-TC; 80202-TC; 82232; 82728-TC; 83540-TC; 83615-TC; 83735-TC; 83880; 84100-TC; 84443-TC; 84484-TC; 85025-TC; 85652-TC; 87040-TC; 87070-TC; 87081-TC; G0378; J0692; J1447; J1956; J2405; J3370; J3475; J7030; J7050; J7060

== ENCOUNTER 2020-03-06 11:28 | Inpatient (IN) | payer OTHER ==
[~2020-03-06] VITALS: Ht 182.9 cm; Wt 99.8 kg
[~2020-03-06 11:28] MED LIST changes: +BENZ-13 PO; -DIPH25CA51 PO; +FERR325T28 PO; -IBUP-1955 PO; +LEVO500T23 PO; +MUPI22OI7 MC; +RIVA15TA PO
--- NOTE | 2020-03-06 11:39 | NUR ---
Came in for "Cough/Fever/tired/weak x1wk worse now I think I may have pneumonia have similar symptoms before" to ER bed 7, hooked to monitor, changed to hosp gown, warm blanket provided, Dr Quesada at bedside
--- NOTE | 2020-03-06 12:41 | NUR ---
CORONAVIRUS SWAB DONE, SENT TO LAB
[2020-03-06 12:53] LABS: EOSINOPHILS % (AUTO) 1.6 % (0.0-6.0); HEMATOCRIT 43 % (39-51); HEMOGLOBIN 14.5 g/dL (13.5-17.5); LYMPHOCYTES # (AUTO) 0.4 /CMM (0.8-4.8); LYMPHOCYTES % (AUTO) 12.5 % (20.0-44.0); MEAN CORPUSCULAR HGB CONC 34 g/dl (31.0-36.0); MEAN CORPUSCULAR VOLUME 87 fL (80-96); MONOCYTES # (AUTO) 2.5 /CMM (0.1-1.30); MONOCYTES % (AUTO) 85.6 % (2.0-12.0); NEUTROPHILS % (AUTO) 0.3 % (43.0-81.0); PLATELET COUNT (AUTO) 263 /CMM (150-450); RED BLOOD CELL COUNT(AUTO) 4.98 MIL/uL (4.5-6.0); WHITE BLOOD COUNT (AUTO) 2.9 K/uL (4.3-11.0)
[2020-03-06 12:57] LABS: CALCIUM, SERUM 9.4 mg/dL (8.5-10.1); CREATININE 1.2 mg/dL (0.6-1.3); POTASSIUM 3.7 mmol/L (3.5-5.1)
[2020-03-06] MEDS ORDERED: FERR325T23 MT (14:22)
--- NOTE | 2020-03-06 14:29 | NUR ---
CALLED NURSING SUP FOR TELE BED.
[2020-03-06] MEDS ORDERED: LEVOFLOXACIN 750 MG /D5W 150ML PIGGYBACK IV ONE (14:30)
[2020-03-06] MEDS ORDERED: LEVOFLOXACIN 750 MG /D5W 150ML 150 ML IV ONE (14:43)
[2020-03-06 14:46] LABS: EOSINOPHILS % (MANUAL) 3 % (0-4); LYMPHOCYTES % (MANUAL) 12 % (16-48); MONOCYTES % (MANUAL) 81 % (0-11.0); NEUTROPHILS % (MANUAL) 1 (42-76); REACTIVE LYMPHOCYTES 3 % (0-0)
--- NOTE | 2020-03-06 15:01 | NUR ---
NURSING SUP GAVE TELE BED 104.
--- NOTE | 2020-03-06 15:33 | NUR ---
REPORT GIVEN TO SOON RN OF TELE UNIT
--- NOTE | 2020-03-06 15:33 | NUR ---
PER MS SOON, PATIENT GOING TO 109
--- NOTE | 2020-03-06 16:00 | NUR ---
MACO RN NOTES RECEIVED PT FROM ER. SOON GAVE ME THE REPOT. PT HAD FEVER AND ON LEVOQUIN.
[2020-03-06] MEDS ORDERED: ONDANSETRON HCL/PF 4 MG/2 ML VIAL IVP PRN (16:30)
[2020-03-06] MEDS ORDERED: Z GUARD REMEDY 2 OZ OINT TP PRN (16:30)
[2020-03-06] MEDS ORDERED: MAG HYDROX/AL HYDROX/SIMETH 30 ML UDC PO PRN (16:30)
[2020-03-06] MEDS ORDERED: MAGNESIUM HYDROXIDE 30 ML UDC PO PRN (16:30)
[2020-03-06 17:00] VITALS: BP 111/69
[2020-03-06 19:03] VITALS: BP 111/69
[2020-03-06] MEDS: IV NS 0.9% 1,000 ML IV PRN (19:39)
[2020-03-06 21:00] VITALS: BP 130/69
[2020-03-07] VITALS: BP 118/60
[2020-03-07] MEDS: IV NS 0.9% 1,000 ML IV PRN (05:53)
--- NOTE | 2020-03-07 06:05 | NUR ---
RN notes Comfortably resting in bed with no apparent distress. Breathing even and unlabored. Alert and oriented, verbal, ambulatory and with bathroom privellege. No complaint of pain or discomfort. Vital signs wnl. Kept clean and dry. Will endorse to next shift for continuity of care.
[2020-03-07 07:04] LABS: CALCIUM, SERUM 8.5 mg/dL (8.5-10.1); CREATININE 1.2 mg/dL (0.6-1.3); MAGNESIUM 1.9 mg/dL (1.8-2.4); PHOSPHORUS 2.6 mg/dL (2.5-4.9); POTASSIUM 3.7 mmol/L (3.5-5.1)
[2020-03-07 07:21] LABS: BASOPHILS % (AUTO) 0.1 % (0.0-2.0); EOSINOPHILS % (AUTO) 2.2 % (0.0-6.0); HEMATOCRIT 39 % (39-51); HEMOGLOBIN 12.7 g/dL (13.5-17.5); LYMPHOCYTES # (AUTO) 0.3 /CMM (0.8-4.8); LYMPHOCYTES % (AUTO) 13.8 % (20.0-44.0); MEAN CORPUSCULAR HGB CONC 33 g/dl (31.0-36.0); MEAN CORPUSCULAR VOLUME 87 fL (80-96); MONOCYTES # (AUTO) 1.6 /CMM (0.1-1.30); MONOCYTES % (AUTO) 83.1 % (2.0-12.0); NEUTROPHILS % (AUTO) 0.8 % (43.0-81.0); PLATELET COUNT (AUTO) 243 /CMM (150-450); RED BLOOD CELL COUNT(AUTO) 4.46 MIL/uL (4.5-6.0)
[2020-03-07 07:31] LABS: WHITE BLOOD COUNT (AUTO) 1.9 K/uL (4.3-11.0)
--- NOTE | 2020-03-07 07:39 | NUR ---
RN OPENING NOTES RECEIVED PATIENT SLEEPING IN BED WITH HEAD COVERED WITH BLACK TSHIRT, PT EASILY AROUSED. PT IS ON RA, TOLERATING WELL, NO SOB. HE IS AOX4, VERBAL, AND AMBULATORY. TELE MONITOR SHOWING SR. SKIN IS INTACT PT ON REG DIET. IV SITE ON RAC INFUSING NS AT 75 ML.HR. CONTACT AND DROPLET ISO HAVE BEEN IMPLEMENTED AND ENFORCED FOR R/O COVID. SAFETY MEASURES HAVE BEEN IMPLEMENTED, CALL LIGHT IS WITHIN REACH, BED IS IN LOWEST AND LOCKED POSITION, SIDE RAILS UP X2, WILL CONTINUE TO MONITOR FOR ANY CHANGES.
[2020-03-07 08:00] VITALS: BP 110/53
[2020-03-07 08:02] LABS: C-REACTIVE PROTEIN 32.5 mg/dL (0.0-0.9)
[2020-03-07] MEDS: ACETAMINOPHEN 325 MG TABLET PO PRN ×2 (08:05→21:36)
[2020-03-07] MEDS: RIVAROXABAN 15 MG TABLET PO SCH (08:06)
[2020-03-07 08:19] LABS: EOSINOPHILS % (MANUAL) 2 % (0-4); LYMPHOCYTES % (MANUAL) 11 % (16-48); MONOCYTES % (MANUAL) 86 % (0-11.0); NEUTROPHILS % (MANUAL) 1 (42-76)
--- NOTE | 2020-03-07 08:30 | NUR ---
RN NOTES PT HAS A TEMP OF 100.9 F THIS AM.OFFERED THE PATENT 650 MG PO TYLENOL BUT PT REFUSED AND STATED "I DONT WANT TO TAKE THAT RIGHT NOW BECAUSE IT MAKES ME SWEATY, MAYBE LATER". EXPLAINED TO THE PT THE WHY HE NEEDS THE TYLENOL, PT VERBALIZED UNDERSTANDING. WILL REASSESS TEMPERATURE AND CONTINUE TO MONITOR
[2020-03-07] MEDS: LEVOFLOXACIN 750 MG /D5W 150ML 750 MG in PREMIX 1 EA IV SCH (11:33)
[2020-03-07 12:00] VITALS: BP 113/61
[2020-03-07] MEDS: GUAIFENESIN/CODEINE 10 ML UDC PO PRN (13:02)
--- NOTE | 2020-03-07 15:50 | NUR ---
RN NOTES PT IS COVID NEGATIVE. RESULTS RELAYED TO MD SHARIF. PT ROOM TO BE CHANGED TO CLEAN UNIT ONCE BED IS AVAILABLE, WILL CONTINUE TO MONITOR FOR ANY CHANGES.
[2020-03-07 16:00] VITALS: BP 105/54
--- NOTE | 2020-03-07 16:39 | NUR ---
RN NOTES PATIENT TRANSFERRED TO ROOM 326-1, TRANSFER REPORT GIVEN TO LORE RN FOR LA NENA
--- NOTE | 2020-03-07 17:21 | NUR ---
rn notes patient remains on room air, no sob noted, a/o x4. Wanting to remove his IV line. Skin is intact, regular diet and with R AC 20 SL. Bed at the lowest setting, call light within reach, side rails up x2.
[2020-03-07 18:18] VITALS: BP 115/68
--- NOTE | 2020-03-07 19:30 | NUR ---
MS/RN OPENING NOTES RECEIVED PATIENT RESTING IN BED WATCHING TV, ALERT AND ORIENTED X 4. NO SIGNS OF SOB OR RESPIRATORY DISTRESS NOTED. PATIENT IS ON ROOM AIR TOLERATING WELL. PATIENTS BREATHING ARE EVEN AND UNLABORED. NO DISTRESS NOTED. PATIENT HAS IV ACCESS ON RIGHT AC #20 G SL. PATIENT STATES NO PAIN AT THE MOMENT. SAFETY MEASURES ARE IN PLACE BED IS LOCKED AND IN THE LOWEST POSITION, CALL LIGHT IS WITHIN REACH. WILL CONTINUE TO MONITOR PATIENT THROUGH OUT SHIFT.
[2020-03-07] MEDS: diphenhydrAMINE HCL 25 MG CAPSULE PO PRN (19:59)
[2020-03-07 20:00] VITALS: BP 115/65
--- NOTE | 2020-03-07 20:00 | NUR ---
MS/RN NOTES PATIENT TEMPERATURE IS AT 101.9 F. PATIENT STATED HE DID NOT WANT TO TAKE TYLENOL AND THE HE BREAKS INTO SWEATS WHEN TAKING TYLENOL. RISK AND BENEFITS HAVE BEEN EXPLAINED TO THE PATIENT FOR NOT TAKING TYLENOL. BENADRYL 25 MG PO WAS GIVEN TO PATIENT. WILL CONTINUE TO MONITOR.
--- NOTE | 2020-03-07 21:15 | NUR ---
MS/RN NOTES PATIENT TEMPERATURE IS AT 101 F. PATIENT STATED HE WOULD LIKE TO TAKE TYLENOL. PATIENT WAS GIVEN TYLENOL 650 MG PO. WILL CONTINUE TO MONITOR.
--- NOTE | 2020-03-07 23:00 | NUR ---
MS/RN NOTES PATIENT TEMPERATURE IS 98.0 F. NO DISTRESS NOTED. NON LABORED BREATHING NOTED. WILL CONTINUE TO MONITOR.
[2020-03-08 05:57] LABS: BASOPHILS % (AUTO) 0.3 % (0.0-2.0); EOSINOPHILS % (AUTO) 3.9 % (0.0-6.0); HEMATOCRIT 40 % (39-51); HEMOGLOBIN 13.1 g/dL (13.5-17.5); LYMPHOCYTES # (AUTO) 0.3 /CMM (0.8-4.8); LYMPHOCYTES % (AUTO) 12.9 % (20.0-44.0); MEAN CORPUSCULAR HGB CONC 33 g/dl (31.0-36.0); MEAN CORPUSCULAR VOLUME 86 fL (80-96); MONOCYTES # (AUTO) 1.8 /CMM (0.1-1.30); MONOCYTES % (AUTO) 81.9 % (2.0-12.0); PLATELET COUNT (AUTO) 235 /CMM (150-450); RED BLOOD CELL COUNT(AUTO) 4.61 MIL/uL (4.5-6.0); WHITE BLOOD COUNT (AUTO) 2.1 K/uL (4.3-11.0)
--- NOTE | 2020-03-08 06:00 | NUR ---
MS/RN CLOSING NOTES PATIENT RESTING IN BED, ALERT AND ORIENTED X 4. NO SIGNS OF SOB OR RESPIRATORY DISTRESS NOTED. PATIENT IS ON ROOM AIR TOLERATING WELL. PATIENTS BREATHING ARE EVEN AND UNLABORED. NO DISTRESS NOTED. PATIENT HAS IV ACCESS ON RIGHT FOREARM #20 G SL. PATIENT STATES NO PAIN AT THE MOMENT. PATIENT TEMPERATURE IS 98.0 F. SAFETY MEASURES ARE IN PLACE BED IS LOCKED AND IN THE LOWEST POSITION, CALL LIGHT IS WITHIN REACH. WILL ENDORSE CARE TO DAY SHIFT.
[2020-03-08 06:23] LABS: CALCIUM, SERUM 8.9 mg/dL (8.5-10.1); CREATININE 1.2 mg/dL (0.6-1.3); POTASSIUM 3.8 mmol/L (3.5-5.1)
[2020-03-08 07:08] LABS: BAND % (MANUAL) 3 % (0.0-5.0); EOSINOPHILS % (MANUAL) 1 % (0-4); LYMPHOCYTES % (MANUAL) 16 % (16-48); MONOCYTES % (MANUAL) 77 % (0-11.0); NEUTROPHILS % (MANUAL) 3 (42-76)
--- NOTE | 2020-03-08 07:45 | NUR ---
RN OPENING NOTE Patient is resting in bed, A/O x4, showing no signs of acute distress or SOB, stable on RA. Patient has no complaints of pain at this time. IV line in the RFA#18g is clean and intact s/l. Bed is in lowest position, side rails x3 in upright position, call light is within reach, fall safety and aspiration precautions enforced. Reverse isolation precautions enforced. Will continue with plan of care.
[2020-03-08 08:00] VITALS: BP 113/67
[2020-03-08] MEDS: RIVAROXABAN 15 MG TABLET PO SCH (08:29)
[2020-03-08] MEDS: GUAIFENESIN/CODEINE 10 ML UDC PO PRN ×2 (08:36→20:32)
[2020-03-08] MEDS: LEVOFLOXACIN 750 MG /D5W 150ML 750 MG in PREMIX 1 EA IV SCH (11:22)
[2020-03-08 12:00] VITALS: BP 134/64
--- NOTE | 2020-03-08 14:29 | NUR ---
RN NOTE Received call from Kelin at [facility] microbiology, patient is positive for MRSA of the nares. Notified .
--- NOTE | 2020-03-08 14:49 | NUR ---
RN NOTE sent urine sample to lab.
[2020-03-08 16:00] VITALS: BP 120/68
[2020-03-08 16:55] LABS: APPEARANCE,URINE CLEAR (CLEAR); BILIRUBIN,URINE NEGATIVE (NEGATIVE); BLOOD, URINE NEGATIVE Ery/uL (NEGATIVE); COLOR,URINE YELLOW (YELLOW); KETONES,URINE NEGATIVE (NEGATIVE); LEUKOCYTE ESTERASE ,URINE NEGATIVE (NEGATIVE); NITRITE, URINE NEGATIVE (NEGATIVE); PH,URINE 6.5 (5.0-8.0); PROTEIN,URINE NEGATIVE (NEGATIVE); UGLUCOSE NEGATIVE (NEGATIVE); UROBILINOGEN,URINE 0.2 EU/dL (0.2)
[2020-03-08 17:00] LABS: CREATININE, URINE 200.6 MG/DL (30.0-125.0); URINE TOTAL PROTEIN 38.7 mg/dL (0-11.9)
[2020-03-08] MEDS: MUPIROCIN OINT 2% 22 GM TUBE SCH ×2 (17:24→20:33)
[2020-03-08 17:55] LABS: EOSINOPHIL,URINE None Seen
--- NOTE | 2020-03-08 18:32 | NUR ---
RN CLOSING NOTE Patient is resting in bed, A/O x4, showing no signs of acute distress or SOB, stable on RA. Patient has no complaints of pain during this shift. IV line in the RFA#18g is clean and intact s/l. Bed is in lowest position, side rails x3 in upright position, call light is within reach, fall safety and aspiration precautions enforced. Reverse isolation precautions enforced. All patient needs met, all due medications given. Patient is independent with care with BRP. Will endorse to security shift manager for LA NENA.
--- NOTE | 2020-03-08 19:30 | NUR ---
MS/RN OPENING NOTES RECEIVED PATIENT RESTING IN BED, ALERT AND ORIENTED X 4. NO SIGNS OF SOB OR RESPIRATORY DISTRESS NOTED. PATIENT IS ON ROOM AIR TOLERATING WELL. PATIENTS BREATHING ARE EVEN AND UNLABORED. NO DISTRESS NOTED. PATIENT HAS IV ACCESS ON RIGHT FOREARM #20 G SL. PATIENT STATES NO PAIN AT THE MOMENT. SAFETY MEASURES ARE IN PLACE BED IS LOCKED AND IN THE LOWEST POSITION, CALL LIGHT IS WITHIN REACH. WILL CONTINUE TO MONITOR PATIENT.
[2020-03-08 20:00] VITALS: BP 127/65
[2020-03-08] MEDS: diphenhydrAMINE HCL 25 MG CAPSULE PO PRN (20:32)
--- NOTE | 2020-03-08 20:35 | NUR ---
MS/RN NOTES PATIENT HAD MILD COUGH, ROBITUSSIN 10 ML PO WAS GIVEN. PATIENT ASK FOR BENADRYL TO HELP WITH SLEEP, BENADRYL 25 MG PO WAS GIVEN.
--- NOTE | 2020-03-08 21:00 | NUR ---
MS/RN NOTES PATIENT STATED HE DOES NOT WANT THE BED ALARM ON. RISK AND BENEFITS HAVE BEEN EXPLAINED TO PATIENT OF THE IMPORTANCE AND SAFETY OF BED ALARM BY NURSE AND CHARGE NURSE RODRIGO. WILL CONTINUE TO MONITOR.
[2020-03-08] MEDS: HYDROCODONE/APAP 5/325MG TABLET PO PRN (23:50)
--- NOTE | 2020-03-08 23:55 | NUR ---
MS/RN NOTES PATIENT TEMPERATURE AT 101.3 AT 2300 HRS. PATIENT STATED HE DOES NOT WANT TO TAKE TYLENOL BECAUSE IT CAUSES HIM TO BREAK IN TO SWEAT. NORCO 5-325 PO WAS GIVEN TO PATIENT. WILL CONTINUE TO MONITOR.
--- NOTE | 2020-03-09 06:20 | NUR ---
MS/RN CLOSING NOTES PATIENT RESTING IN BED, ALERT AND ORIENTED X 4. NO SIGNS OF SOB OR RESPIRATORY DISTRESS NOTED. PATIENT IS ON ROOM AIR TOLERATING WELL. PATIENTS BREATHING ARE EVEN AND UNLABORED. NO DISTRESS NOTED. PATIENT HAS IV ACCESS ON RIGHT FOREARM #20 G SL. PATIENT STATES NO PAIN AT THE MOMENT. SAFETY MEASURES ARE IN PLACE BED IS LOCKED AND IN THE LOWEST POSITION, CALL LIGHT IS WITHIN REACH. ALL PATIENTS NEEDS HAVE BEEN MET DURING SHIFT. WILL ENDORSE CARE TO DAY SHIFT.
[2020-03-09 07:52] LABS: PHOSPHORUS 4.1 mg/dL (2.5-4.9); POTASSIUM 3.8 mmol/L (3.5-5.1)
[2020-03-09 07:54] LABS: THYROID STIMULATING HORMONE 2.51 uIU/mL (0.358-3.74); URIC ACID 5.2 mg/dL (2.6-7.2)
[2020-03-09 08:00] VITALS: BP 120/67
--- NOTE | 2020-03-09 08:20 | NUR ---
RN NOTE THE PATIENT`S TEMP IS 101.6F BUT THE PATIENT REFUSES TO TAKE ANY MEDICATION OR COOLING MEASURES DESPITE EXPLAINING RISKS AND BENEFITS. WILL CONTINUE TO MONITOR AND ENCOURAGE THE PATIENT.
[2020-03-09] MEDS: MUPIROCIN OINT 2% 22 GM TUBE SCH ×2 (09:00→20:50)
--- NOTE | 2020-03-09 09:00 | NUR ---
RN NOTE AFTER PROVIDING COOLING MEASURES THE PATIENT`S TEMP LOWERED TO 101.2F. WILL CONTINUE TO MONITOR AND ENCOURAGE THE PATIENT TO TAKE TYLENOL.
--- NOTE | 2020-03-09 10:42 | NUR ---
RN NOTE DR SHARIF IS MADE AWARE OF PATIENT HAVING TEMP OF 101.6F AND THAT THE PATIENT REFUSES TO TAKE TYLENOL, INSTEAD HE IS ASKING FOR IBUPROFEN. RECEIVED ORDER OF STAT BLOOD CULTURE- NOTED AND CARRIED OUT. WAITING FOR ORDER OF IBUPROFEN. PLACED ICE PACK AXILLARY AND GROIN AREA. WILL CONTINUE TO MONITOR.
[2020-03-09] MEDS: RIVAROXABAN 15 MG TABLET PO SCH (10:44)
[2020-03-09] MEDS: GUAIFENESIN/CODEINE 10 ML UDC PO PRN ×2 (10:46→23:35)
[2020-03-09] MEDS ORDERED: IBUPROFEN 600 MG TABLET PO PRN (11:00)
[2020-03-09] MEDS ORDERED: LEVOFLOXACIN (750 MG) 750 MG TABLET PO SCH (11:00)
--- NOTE | 2020-03-09 11:00 | NUR ---
RN NOTE RECEIVED ORDER FROM DR SHARIF FOR AN ORDER OF IBUPROFEN 600 MG PO Q6HR PRN. NOTED AND CARRIED OUT.
--- NOTE | 2020-03-09 11:10 | NUR ---
RN NOTE THE PATIENT IS GIVEN IBUPROFEN 600 MG P FOR TEMP OF 101.6F. WILL CONTINUE TO MONITOR.
[2020-03-09] MEDS ORDERED: LEVOFLOXACIN 750 MG /D5W 150ML 750 MG in PREMIX 1 EA IV ONE (12:00)
[2020-03-09] MEDS ORDERED: LEVOFLOXACIN (250MG) 250 MG TABLET PO SCH (12:00)
[2020-03-09] MEDS ORDERED: MEROPENEM 500 MG in IV NS 0.9% 50 ML IV ONE (12:00)
--- NOTE | 2020-03-09 12:15 | NUR ---
RN NOTE THE PATIENT`S TEMP LOWERED TO 99.1F. WILL CONTINUE TO MONITOR.
--- NOTE | 2020-03-09 14:35 | NUR ---
RN NOTE THE PATIENT`S TEMP LOWERED TO 97.0F. WILL CONTINUE TO MONITOR.
--- NOTE | 2020-03-09 15:00 | NUR ---
RN NOTE PATIENT ALERT AND ORIENTED X4. IN ROOM AIR AND DENIES SOB. RESPIRATION REGULAR AND UNLABORED. DENIES PAIN. THE PATIENT IN NO APPARENT DISTRESS. REPORT GIVEN TO THE NURSE LIANET.
[2020-03-09] MEDS ORDERED: FEE PK DOSING 1 MIN EA MC ONE (15:48)
[2020-03-09 16:00] VITALS: BP 102/66
[2020-03-09] MEDS: VANCOMYCIN 1 GM in IV D5W 250 ML IV SCH ×2 (17:14→23:35)
[2020-03-09] MEDS ORDERED: MEROPENEM 500 MG in IV NS 0.9% 100 ML IV SCH (18:00)
--- NOTE | 2020-03-09 18:32 | NUR ---
RN Closing Note Patient in bed comfortably, d/c isolation due to wbc > 1.0. Skin is warm to touch, kept clean/dry, intact IV site. No fever observed after given Motrin. Respiratory even and unlabored in room air, no distress observed. Keep bed in locked with elevated head of bed and low portion of the bed. Collected influenza and sputum Cx and sent to lab. Call light within reach, will endorse night court magistrate.
--- NOTE | 2020-03-09 19:30 | NUR ---
MS/RN NOTES RECEIVED PATIENT IN BED RESTING, ALERT AND ORIENTED X 4. PATIENT IS IN NO SIGNS OF DISTRESS. PATIENT IS ON ROOM AIR TOLERATING WELL. NO SIGNS OF SOB OR RESPIRATORY DISTRESS NOTED. BREATHING IS EVEN AND UNLABORED. PATIENT STATES NO PAIN AT THE MOMENT. PATIENT HAS IV ACCESS ON RIGHT FOREARM #18 G SL, INTACT AND PATENT. SAFETY MEASURES ARE IN PLACE, BED IS LOCKED AND IN THE LOW POSITION WITH SIDE RAILS UP X 2. CALL LIGHT IS WITHIN REACH. WILL CONTINUE TO MONITOR THROUGH OUT SHIFT.
[2020-03-09 20:00] VITALS: BP 122/87
--- NOTE | 2020-03-09 20:10 | NUR ---
MS/RN NOTES PATIENT TEMPERATURE AT 101 F. PATIENT DID NOT WANT TO TAKE MEDICATION TO REDUCE TEMPERATURE. RISK AND BENEFITS EXPLAINED TO PATIENT. WILL CONTINUE TO MONITOR.
[2020-03-09] MEDS: diphenhydrAMINE HCL 25 MG CAPSULE PO PRN (20:50)
--- NOTE | 2020-03-09 20:50 | NUR ---
MS/RN NOTES PATIENT WAS REQUESTING BENADRYL TO HELP HIM WITH SLEEP. BENADRYL 25 MG GIVEN PO. WILL CONTINUE TO MONITOR.
[2020-03-09] MEDS: MEROPENEM 500 MG in IV NS 0.9% 50 ML IV SCH (20:51)
--- NOTE | 2020-03-09 23:50 | NUR ---
MS/RN NOTES PATIENT STATED, "HAVING SOMEWHAT OF A COUGH" AND WOULD LIKE TO TAKE ROBITUSSIN. ROBITUSSIN 10 ML PO WAS GIVEN. WILL CONTINUE TO MONITOR.
[2020-03-10] MEDS: MEROPENEM 500 MG in IV NS 0.9% 50 ML IV SCH ×3 (04:54→21:10)
--- NOTE | 2020-03-10 06:25 | NUR ---
MS/RN CLOSING NOTES PATIENT IN BED SLEEPING, ALERT AND ORIENTED X 4. PATIENT IS IN NO SIGNS OF DISTRESS. PATIENT IS ON ROOM AIR TOLERATING WELL. NO SIGNS OF SOB OR RESPIRATORY DISTRESS NOTED. BREATHING IS EVEN AND UNLABORED. PATIENT STATES NO PAIN AT THE MOMENT. PATIENT HAS IV ACCESS ON RIGHT FOREARM #18 G SL, INTACT AND PATENT. SAFETY MEASURES ARE IN PLACE, BED IS LOCKED AND IN THE LOW POSITION WITH SIDE RAILS UP X 2. CALL LIGHT IS WITHIN REACH. WILL ENDORSE CARE TO DAY SHIFT.
--- NOTE | 2020-03-10 07:30 | NUR ---
m/s school health assistant: notes rich (pharmacist) on the phone and informed him that pt doesn't have an order of vanco trough after the 3rd dose, stated, "after the 4th dose is okay." noted there's a vanco trough level at 2300 tonight.
[2020-03-10 07:44] LABS: CREATININE 1.1 mg/dL (0.6-1.3); POTASSIUM 3.5 mmol/L (3.5-5.1)
[2020-03-10] MEDS: VANCOMYCIN 1 GM in IV D5W 250 ML IV SCH ×2 (07:56→16:14)
[2020-03-10 08:00] VITALS: BP 109/56
--- NOTE | 2020-03-10 08:00 | NUR ---
m/s wheel loader operator: initial assessment received pt in bed awake, a/ox4. no c/o pain or any discomfort. white blood count 2.1, improving. pt made aware. vss. no distress noted. will continue to monitor.
[2020-03-10] MEDS: RIVAROXABAN 15 MG TABLET PO SCH (08:49)
[2020-03-10] MEDS: MUPIROCIN OINT 2% 22 GM TUBE SCH ×2 (08:52→21:09)
--- NOTE | 2020-03-10 10:00 | NUR ---
m/s roller machine operator: notes resting comfortable. no distress noted. will continue to monitor.
--- NOTE | 2020-03-10 12:00 | NUR ---
m/s glue specialty supervisor: notes lunch served. hob elevated. instructed to call for assistance. will continue to monitor.
[2020-03-10] MEDS: LEVOFLOXACIN (250MG) 250 MG TABLET PO SCH (12:08)
--- NOTE | 2020-03-10 14:30 | NUR ---
m/s dairy frozen manager: md visit seen and examined by dr. ag. md updated pt's plan of care, pt verbalized understanding. will continue to monitor.
[2020-03-10 16:00] VITALS: BP 112/68
[2020-03-10] MEDS: GUAIFENESIN/CODEINE 10 ML UDC PO PRN ×2 (16:22→22:51)
--- NOTE | 2020-03-10 17:00 | NUR ---
m/s service superintendent: notes dinner served. instructed to call for assistance.
--- NOTE | 2020-03-10 17:45 | NUR ---
m/s corporate event planner: id f/u seen and examined by hayley marie (fnps) at this time.
--- NOTE | 2020-03-10 19:10 | NUR ---
m/s computer builder: notes report given to pao (keke) for continuity of care.
--- NOTE | 2020-03-10 19:20 | NUR ---
MSRN FULLY AWAKE, ALL NEEDS ATTENDED. NO DISCOMFORTS OF THIS TIME. CONTINUED.
[2020-03-10 20:00] VITALS: BP 117/72
--- NOTE | 2020-03-10 21:00 | NUR ---
MSRN IV SITE INFILTRATED. ICU NURSE INSERTED 20 LEFT HAND WITH GOOD BLOOD RETURN. MEREM ANTIBIOTIC INFUSING WELL.
[2020-03-10] MEDS: diphenhydrAMINE HCL 25 MG CAPSULE PO PRN (21:46)
[2020-03-11] MEDS: VANCOMYCIN 1 GM in IV D5W 250 ML IV SCH ×3 (00:28→15:26)
--- NOTE | 2020-03-11 03:25 | NUR ---
RASHID SLEPT WELL. CLOSELY WATCHED.
[2020-03-11] MEDS: MEROPENEM 500 MG in IV NS 0.9% 50 ML IV SCH ×3 (05:38→21:05)
--- NOTE | 2020-03-11 06:45 | NUR ---
MSRN REMAINS UNCHANGED. NO NEEDS MADE.
[2020-03-11 07:52] LABS: BASOPHILS % (AUTO) 0.6 % (0.0-2.0); EOSINOPHILS % (AUTO) 9.8 % (0.0-6.0); HEMATOCRIT 42 % (39-51); HEMOGLOBIN 13.8 g/dL (13.5-17.5); LYMPHOCYTES # (AUTO) 0.7 /CMM (0.8-4.8); LYMPHOCYTES % (AUTO) 20.4 % (20.0-44.0); MEAN CORPUSCULAR HGB CONC 33 g/dl (31.0-36.0); MEAN CORPUSCULAR VOLUME 85 fL (80-96); MONOCYTES # (AUTO) 1.7 /CMM (0.1-1.30); MONOCYTES % (AUTO) 46.1 % (2.0-12.0); NEUTROPHILS # (AUTO) 0.8 /CMM (1.8-8.9); NEUTROPHILS % (AUTO) 23.1 % (43.0-81.0); PLATELET COUNT (AUTO) 315 /CMM (150-450); RED BLOOD CELL COUNT(AUTO) 4.87 MIL/uL (4.5-6.0); WHITE BLOOD COUNT (AUTO) 3.6 K/uL (4.3-11.0)
--- NOTE | 2020-03-11 07:57 | NUR ---
MS RN OPENING NOTE PATIENT IN BED RESTING COMFORTABLY. PATIENT IN NO ACUTE DISTRESS. NO SOB NOTED. PATIENT BREATHING IS EVEN AND UNLABORED. PATIENT BED ALARM IS ON. SAFETY PRECAUTIONS IN PLACE. PATIENT BED IS LOCKED AND IN LOWEST POSITION. CALL LIGHT WITHIN REACH. WILL CONTINUE TO MONITOR.
[2020-03-11 08:00] VITALS: BP 110/70
[2020-03-11 08:08] LABS: POTASSIUM 4.1 mmol/L (3.5-5.1)
[2020-03-11] MEDS: MUPIROCIN OINT 2% 22 GM TUBE SCH ×2 (08:51→21:05)
[2020-03-11] MEDS: RIVAROXABAN 15 MG TABLET PO SCH (08:53)
--- NOTE | 2020-03-11 08:57 | NUR ---
MS RN NOTE PATIENT HAVING COUGH AT THIS TIME, PATIENT REQUESTING ROBITUSSIN. ROBITUSSIN PRN ORDERED GIVEN.
[2020-03-11] MEDS: GUAIFENESIN/CODEINE 10 ML UDC PO PRN ×2 (08:59→22:23)
[2020-03-11 09:39] LABS: EOSINOPHILS % (MANUAL) 8 % (0-4); LYMPHOCYTES % (MANUAL) 24 % (16-48); MONOCYTES % (MANUAL) 48 % (0-11.0); NEUTROPHILS % (MANUAL) 20 (42-76)
--- NOTE | 2020-03-11 12:16 | NUR ---
SW CONSULT: die try out worker conducted consult to assess the pt's living situation and perform a needs assessment. Pt reported he is currently NOT homeless and is residing at [facility] [address] ([address] [place] [address]. [place] [id number], [address]). Pt reported he is housed through [facility] and is connected with their resources. Pt reported [facility] provides meals in the [facility] as well. Pt reported he contacted [facility] this morning to ensure his room would still be available upon his hospital discharge. Pt reported he will be discharging back to the [facility] as it will still be available to him. Pt reported he currently receives GR. Pt denied a history of drug or alcohol use. Pt reported a psychiatric diagnosis of Schizophrenia, and reported he does not follow a psychotropic medication regimen at this time. Pt reported he utilized a cane in the past for walking support, but no longer has one at this time. Pt reported he feels like he could benefit from a cane upon discharge. Pt reported he will need assistance with transportation upon discharge. Pt was offered a TAP card; pt agreed. SW contacted [employer] to provide a TAP card to the pt upon discharge. Pt provided an emergency contact: Osei Santos (friend) [phone]. SW provided the pt additional [facility] resources and asked the pt to sign the Homeless Patient Waiver. Pt signed; SW filled the document in his chart. Mattress Finisher available for support as needed.
[2020-03-11] MEDS: LEVOFLOXACIN (250MG) 250 MG TABLET PO SCH (12:34)
--- NOTE | 2020-03-11 14:30 | NUR ---
MS RN NOTE SPOKE WITH DR. JAIME AND INFORMED HIM THAT PATIENT IS TO BE DISCHARGED AND NEEDS PO ANTIBIOTICS TO BE PRESCRIBED. PER DR. JAIME HE WILL TAKE A LOOK OVER PATIENTS CHART AND HANDLE IT.
--- NOTE | 2020-03-11 15:22 | NUR ---
SW NOTE: Called pt's RN Fletcher regarding pt's request for a cane upon discharge. Per Fletcher ZAVALETA, he will f/u with Francy LEMOS.
[2020-03-11 16:00] VITALS: BP 118/70
--- NOTE | 2020-03-11 18:00 | NUR ---
MS RN NOTE FOLLOWED UP WITH CHARGE NURSE HILARIO REGARDING PATIENT REQUEST FOR CANE BEFORE DISCHARGE. PER HILARIO WILL FOLLOW UP TOMORROW WITH PATIENT IF WALKER WILL BE OKAY FOR USE.
--- NOTE | 2020-03-11 19:32 | NUR ---
MS RN CLOSING NOTE PATIENT IN BED RESTING COMFORTABLY. PATIENT IN NO ACUTE DISTRESS. NO SOB NOTED. PATIENT BREATHING IS EVEN AND UNLABORED. PATIENT BED ALARM IS ON. PATIENT KEPT CLEAN, DRY, AND COMFORTABLE THROUGHOUT SHIFT. NEEDS AND CONCERNS ADDRESSED. SAFETY PRECAUTIONS IN PLACE. PATIENT BED IS LOCKED AND IN LOWEST POSITION. CALL LIGHT WITHIN REACH. WILL ENDORSE CARE TO PM SHIFT FOR LA NENA.
--- NOTE | 2020-03-11 19:57 | NUR ---
RN NOTES RECEIVED PATIENT IN BED RESTING COMFORTABLY. PATIENT IN NO ACUTE DISTRESS. NO SOB NOTED. NO SIGNS OF CARDIAC OR RESPIRATORY DISTRESS NOTED. PATIENT BREATHING IS EVEN AND UNLABORED. PATIENT BED ALARM IS ON. SAFETY PRECAUTIONS IN PLACE. PATIENT BED IS LOCKED AND IN LOWEST POSITION. CALL LIGHT WITHIN EASY REACH. ALL NEEDS ANTICIPATED. WILL CONTINUE TO MONITOR ACCORDINGLY.
[2020-03-11 20:00] VITALS: BP 116/69
[2020-03-11] MEDS: diphenhydrAMINE HCL 25 MG CAPSULE PO PRN (21:13)
--- NOTE | 2020-03-12 01:30 | NUR ---
MS RN NOTES RECEIVED REPORT FROM TIERRA RN,PATIENT SLEEPING THIS TIME.WILL CONTINUE TO MONITOR
--- NOTE | 2020-03-12 01:33 | NUR ---
RN NOTES REPORT GIVEN TO MEGHANN ROBERTO FOR LA NENA.
--- NOTE | 2020-03-12 02:00 | NUR ---
MS RN NOTES RECEIVED REPORT FROM MEGHANN MAYORGA,PATIENT SLEEPING AT THIS TIME.
[2020-03-12] MEDS: MEROPENEM 500 MG in IV NS 0.9% 50 ML IV SCH (04:33)
--- NOTE | 2020-03-12 06:51 | NUR ---
MS RN NOTES FAIRLY RESTED,NO SOB,DUE IV MEDS ADMINISTERED,CALL LIGHT IN REACH,NEEDS ATTENDED.
[2020-03-12 08:00] VITALS: BP_SYST 100; BP_SYST 105; BP_DIAS 61; BP_DIAS 63
--- NOTE | 2020-03-12 08:00 | NUR ---
RN NOTES RECEIVED PATIENT IN THE BED A/O X3, NO ACUTE RESPIRATORY DISTRESS, V/S STABLE, WAS COMPLAINING OF PAIN GENERALIZED, PATIENT ISOLATION OF MRSA OF NARES, ADMINISTERED SCHEDULED MEDICATION, MONITORING FOR BLEEDING, PATIENT WAS COMPLAINING OF PAIN GENERALIZED, IV ACCESS ON LEFT FA INTACT, PATIENT TOLERATED BREAKFAST WELL. CALL LIGHT WITHIN TO REACH. SAFETY PRECAUTION MAINTAINED ALL THE TIME.
[2020-03-12 08:11] LABS: BASOPHILS % (AUTO) 0.8 % (0.0-2.0); EOSINOPHILS % (AUTO) 6.4 % (0.0-6.0); HEMATOCRIT 41 % (39-51); HEMOGLOBIN 13.3 g/dL (13.5-17.5); LYMPHOCYTES # (AUTO) 0.7 /CMM (0.8-4.8); LYMPHOCYTES % (AUTO) 17.7 % (20.0-44.0); MEAN CORPUSCULAR HGB CONC 33 g/dl (31.0-36.0); MEAN CORPUSCULAR VOLUME 86 fL (80-96); MONOCYTES # (AUTO) 1.4 /CMM (0.1-1.30); MONOCYTES % (AUTO) 35.7 % (2.0-12.0); NEUTROPHILS # (AUTO) 1.5 /CMM (1.8-8.9); NEUTROPHILS % (AUTO) 39.4 % (43.0-81.0); PLATELET COUNT (AUTO) 295 /CMM (150-450); RED BLOOD CELL COUNT(AUTO) 4.76 MIL/uL (4.5-6.0); WHITE BLOOD COUNT (AUTO) 3.9 K/uL (4.3-11.0)
[2020-03-12] MEDS: MUPIROCIN OINT 2% 22 GM TUBE SCH (08:26)
[2020-03-12] MEDS: RIVAROXABAN 15 MG TABLET PO SCH (08:32)
[2020-03-12] MEDS: HYDROCODONE/APAP 5/325MG TABLET PO PRN (08:37)
--- NOTE | 2020-03-12 08:37 | NUR ---
rn notes administered narco 5/325 mg po prn for generalized pain, v/s taken bp 100/61, p-71, r-16. continued monitoring.
[2020-03-12 08:55] LABS: CALCIUM, SERUM 9.1 mg/dL (8.5-10.1); POTASSIUM 4.1 mmol/L (3.5-5.1)
[2020-03-12 11:22] LABS: EOSINOPHILS % (MANUAL) 7 % (0-4); LYMPHOCYTES % (MANUAL) 18 % (16-48); MONOCYTES % (MANUAL) 30 % (0-11.0); NEUTROPHILS % (MANUAL) 45 (42-76)
--- NOTE | 2020-03-12 12:13 | NUR ---
RN NOTES PATIENT GOING TO BE DISCHARGE HOME SELF CARE.
[2020-03-12] MEDS: LEVOFLOXACIN (250MG) 250 MG TABLET PO SCH (12:23)
--- NOTE | 2020-03-12 13:00 | NUR ---
FOLDER INSPECTOR NOTES PATIENT DISCHARGE AT THIS TIME GOING MT CARE. PATIENT STABLE ,REFUSED PAIN, V/ S WNL, REFUSED PAIN. MED RECONCILIATION AND DISCHARGE ORDER REVIEWED AND EXPLAINED TO THE PATIENT. PATIENT VERBALIZED UNDERSTANDING. PRESCRIPTION, AND PAPERWORK HANDED TO THE PATIENT, AND CANE, AND BUS PASS. PATIENT WILL FOLLOW PCP, AND TAKE MEDICATION PRESCRIBED. ESCORTED PATIENT TO THE LOBBY FOR SAFETY. PATIENT SIGN HOMELESS WAIVER FORM.
== END 2020-03-12 13:00 | disposition home or self-care (01) | DRG 720 ==
LOC: ER 11:34 → TELE1 15:01 → MEDSG1 03-07 15:36 → MED 03-07 16:17
PROVIDERS: ADMIT Internal Medicine
DX: A41.9 Sepsis, unspecified organism (principal); J15.9 Unspecified bacterial pneumonia; N17.0 Acute kidney failure with tubular necrosis; E87.1 Hypo-osmolality and hyponatremia; Z87.891 Personal history of nicotine dependence; Z79.01 Long term (current) use of anticoagulants; Z86.718 Personal history of other venous thrombosis and embolism; Z87.01 Personal history of pneumonia (recurrent); Z22.322 Carrier or suspected carrier of Methicillin resistant Staphylococcus aureus; D70.9 Neutropenia, unspecified; C85.90 Non-Hodgkin lymphoma, unspecified, unspecified site; E86.1 Hypovolemia; R73.9 Hyperglycemia, unspecified; D89.9 Disorder involving the immune mechanism, unspecified; Z88.0 Allergy status to penicillin
CPT/HCPCS: 36415; 71045-TC; 76770-TC; 80048-TC; 80202-TC; 81000-TC; 82570-TC; 82728-TC; 83735-TC; 83935-TC; 84100-TC; 84155-TC; 84300-TC; 84443-TC; 84550-TC; 85025-TC; 86140-TC; 86803; 87040-TC; 87070-TC; 87081-TC; 87806; A4216; G0378; J1956; J2185; J3370; J7030; J7050; J7060; Q0163; U0003-CS

== ENCOUNTER 2020-04-14 11:35 | Emergency (ER) | payer OTHER ==
[~2020-04-14] VITALS: Ht 193 cm; Wt 108.9 kg
[~2020-04-14 11:35] MED LIST changes: -BENZ-13 PO; -FERR325T28 PO; -LEVO500T23 PO; -MUPI22OI7 MC
[2020-04-14 12:22] LABS: BASOPHILS % (AUTO) 0.2 % (0.0-2.0); EOSINOPHILS % (AUTO) 3.6 % (0.0-6.0); HEMATOCRIT 41 % (39-51); HEMOGLOBIN 13.4 g/dL (13.5-17.5); LYMPHOCYTES # (AUTO) 0.3 /CMM (0.8-4.8); LYMPHOCYTES % (AUTO) 9.9 % (20.0-44.0); MEAN CORPUSCULAR HGB CONC 33 g/dl (31.0-36.0); MEAN CORPUSCULAR VOLUME 87 fL (80-96); MONOCYTES # (AUTO) 0.5 /CMM (0.1-1.30); MONOCYTES % (AUTO) 17.6 % (2.0-12.0); NEUTROPHILS # (AUTO) 1.8 /CMM (1.8-8.9); NEUTROPHILS % (AUTO) 68.7 % (43.0-81.0); PLATELET COUNT (AUTO) 129 /CMM (150-450); RED BLOOD CELL COUNT(AUTO) 4.68 MIL/uL (4.5-6.0); WHITE BLOOD COUNT (AUTO) 2.7 K/uL (4.3-11.0)
--- NOTE | 2020-04-14 12:30 | NUR ---
PT BIB SELF, STS " I'M SICK FOR 1 WK ". DENIES CP, SOB, DIZZINESS, N/V/D AT THIS TIME. PT SEEN & EVAL'D BY DR. JUAREZ. WILL CONT TO MONITOR.
[2020-04-14 12:44] LABS: CARBON DIOXIDE 22 mmol/L (21-32); CHLORIDE 102 mmol/L (98-107); CREATININE 1.1 mg/dL (0.6-1.3); GLUCOSE 153 mg/dL (74-106); POTASSIUM 3.4 mmol/L (3.5-5.1); SODIUM SERUM 137 mmol/L (136-145); UREA NITROGEN, BLOOD 16 mg/dL (7-18)
[2020-04-14 12:47] LABS: ALANINE AMINOTRANSFERASE 177 U/L (12-78); ALBUMIN 3.6 g/dL (3.4-5.0); ALKALINE PHOSPHATASE 606 U/L (46-116); ASPARTATE AMINOTRANSFERASE 92 U/L (15-37); BILIRUBIN,TOTAL 1.4 mg/dL (0.2-1.0); TOTAL PROTEIN, SERUM 7.1 g/dL (6.4-8.2)
[2020-04-14 13:06] LABS: FERRITIN 173 ng/mL (8-388)
[2020-04-14 13:12] LABS: D-DIMER 4.55 mg/L(FEU (0.17-0.50)
[2020-04-14 13:17] LABS: EOSINOPHILS % (MANUAL) 5 % (0-4); LYMPHOCYTES % (MANUAL) 12 % (16-48); MONOCYTES % (MANUAL) 14 % (0-11.0); NEUTROPHILS % (MANUAL) 69 (42-76)
[2020-04-14 13:30] LABS: C-REACTIVE PROTEIN 6.2 mg/dL (0.0-0.9)
[2020-04-14] MEDS ORDERED: IV NS 0.9% 250 ML IV ONE (13:46)
[2020-04-14] MEDS ORDERED: CT SWABBABLE VALVE TRANS SET 1 EA INFUS.SET MC ONE (13:46)
[2020-04-14] MEDS ORDERED: IOHEXOL-350 100 ML VIAL IV ONE (13:46)
[2020-04-14] MEDS ORDERED: IV NS 0.9% 1,000 ML BAG IV ONE (14:00)
--- NOTE | 2020-04-14 15:06 | NUR ---
PT BACK FROM CT. DENIES CP, SOB, DIZZINESS, N/V AT THIS TIME. WILL CONT TO MONITOR.
[2020-04-14 16:04] LABS: BILIRUBIN,DIRECT 0.8 mg/dL (0.0-0.2)
[2020-04-14 17:58] VITALS: BP 118/72
--- NOTE | 2020-04-14 17:59 | NUR ---
Patient discharged to home in stable condition. Written and verbal after care instructions given. Patient verbalizes understanding of instruction. IV removed. Catheter intact and site benign. Pressure and 4x4 applied to site. No bleeding noted.
== END 2020-04-14 17:59 | disposition home or self-care (01) ==
LOC: ER 11:35
DX: J18.9 Pneumonia, unspecified organism (principal); R53.81 Other malaise; R79.1 Abnormal coagulation profile; Z20.828 Contact with and (suspected) exposure to other viral communicable diseases; Z86.718 Personal history of other venous thrombosis and embolism; Z87.01 Personal history of pneumonia (recurrent); Z88.0 Allergy status to penicillin; Z85.9 Personal history of malignant neoplasm, unspecified; Z91.14 Patient's other noncompliance with medication regimen; Z85.72 Personal history of non-Hodgkin lymphomas; Z87.898 Personal history of other specified conditions
CPT/HCPCS: 36415; 71045; 71275; 80053; 82248; 82728; 83605 ×2; 83615; 84145; 85025; 85378; 85385; 86140; 87040 ×2; 87426; 96360; 99285; C9803; J7030; J7050; Q9967